=== PATIENT | female | born 1975 | race Caucasian/White ===

== ENCOUNTER 2016-05-19 08:40 | Day surgery (SDC) | payer BC ==
[~2016-05-19 08:40] MED LIST: DEXAMETHASONE SOD PHOS 4 MG/1 ML VIAL ONE; FENTANYL 100 MCG/2 ML VIAL ONE; KETOROLAC TROMETHAMINE 30 MG/ML 1 ML VIAL ONE; LIDOCAINE 2% (MULTI DOSE) 10 ML VIAL ONE; METOCLOPRAMIDE HCL 5 MG/ML 2ML VIAL ONE; MIDAZOLAM HCL 1 MG/ML 2ML VIAL ONE; ONDANSETRON 4 MG/2ML 2 ML VIAL ONE; PROPOFOL 40 ML IV ONE
--- NOTE | 2016-05-19 08:45 | HP ---
DATE OF CLINIC: 05/16/2016 ADENIKE COREA : 1975 PLANNED PROCEDURE: Right Knee Arthroscopic Loose Body Removal and Possible Chondroplasty DATE OF SURGERY: May 19, 2016 SURGEON: Delon Burton M.D. HISTORY OF PRESENT ILLNESS Adenike Corea is a 40 year old female. * Medication list reviewed with patient allergy list reviewed with patient. * Has not tried NSAIDS * Has not tried Physical Therapy * Has not tried Injections The patient is a 40-year-old female who has had a pain and clicking in her right knee and is here to discuss removal of a loose body in ehr right knee. An MRI was ordered by Silver she would like to review with the results of that. The patient is an established patient of mine who had a right ankle pilon fracture and Maisonneuve fracture of the proximal fibula. She states that her ankle feels fairly good. She has some stiffness but overall she thinks that she is doing well. Her bigger problem is her knee. She states that she has medial sided. Occasionally it clicks or catches on her. She had a loose body which I removed in the left knee and would like to know that potentially could do the same on this right side. She states that she has been trying to get in however the weather has made it difficult for her to get it she thinks that she is doing quite well from her left knee arthroscopic loose body removal. After discussion and review of treatment options for the right knee including non-operative and surgical, she has elected to proceed with surgery and presents today preoperatively. CURRENT MEDICATION * Levothyroxine Sodium 300 MCG Tablet 1 once a day, 30 days, 5 refills * ProAir HFA 108 (90 Base) MCG/ACT Aerosol, solution AERS, as directed 2 puff every 6 hrs as needed, 30 days, 0 refills PAST MEDICAL/SURGICAL HISTORY Reported: Recent change in medical history and no Surgery/Hospitalizations reported. LMP: 2007, Last pap smear date 07/14/2010 result: normal, Last mammogram date: 07/19/2010 result: normal, and DORY - 1 ovary was left. Medical: No history breast mass. Bladder disease multiple infections of kidney/bladder. No previous STD. A previous fracture, Reported numbness, Reported tingling, renal history multiple infections of kidney/bladder, Thyroid Disorder, and Hyperlipidemia. Surgical / Procedural: Arthroscopy Left knee arthroscopic removal of loose body 07/07/15 at [facility] with Dr. Delon Burton. : 5, para 4, and aborta 1. Diagnoses: Urinary tract infection with . No cervical dysplasia No vaginitis. Thyroid disorder Diabetes mellitus - pt states she is on glucophage - states her previous PCP told her she had "traces of DM". Osteoarthritis Procedural: * Negative breast cancer - Left Surgical: * Hysterectomy partial for endometriosis with conservation of left ovary 2007 Tubal - 06/2006 * Tubal ligation 2006 SOCIAL HISTORY * Care Engagement Accepted. Social history unchanged. Behavioral: Caffeine use 2 soda per day and current smoker 1/2 PPD for 20+ years. Not chewing tobacco. Previously smoked. Smoking status: Current everyday smoker. Alcohol: No consumption of alcohol and not using alcohol. Drug Use: Not using drugs. Habits: Good exercise habits. Home Environment: Does not live alone. Lives with spouse and kids. 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 * SBIRT Screening Performed Left shoulder pain for close to a year. Pain started after playing basketball with her children. She reports good relief with steroid shots times two but pain has returned. ALLERGIES * Lortab * Reglan Reaction: Skin Rashes/Hives FAMILY HISTORY Family medical history Mother - OA, RA Father - HTN REVIEW OF SYSTEMS Systemic: No fever and no recent weight change. Cardiovascular: No chest pain or discomfort and no palpitations. Pulmonary: No cough and no wheezing. Gastrointestinal: No nausea, no vomiting, no abdominal pain, and no diarrhea. Hematologic: No easy bleeding (no blood clots). Neurological: No motor disturbances and no sensory disturbances. Skin: No skin lesions and no rash. PHYSICAL FINDINGS * Vitals taken 05/16/2016 10:40 am BP-Sitting R 115/75 mmHg 100 - 120/56 - 80 BP Cuff Size Regular Pulse Rate-Sitting 78 bpm 50 - 100 Pulse Rhythm Regular Temp-Oral 98 F 96 - 101 Height 69 in 60 - 69 Weight 272 lbs 98 - 183 Body Mass Index 40.2 kg/m2 Body Surface Area 2.35 m2 Pain Level 2 General Appearance: * Well developed. * In no acute distress. Eyes: General/bilateral: Extraocular Movements: * Normal. Lungs: * Clear to auscultation. * No wheezing was heard. * No rales/crackles were heard. Cardiovascular: Heart Rate and Rhythm: * Heart rate was normal. * Heart rhythm regular. Abdomen: Palpation: * Abdominal non-tender. Neurological: * Oriented to time, place, and person. Motor: * Dominant Hand = Right Hand. The patient can walk up and down the hallway without any noticeable limp. She can circumduct her ankle and has good range of motion on the side. PHYSICAL FINDINGS RIGHT EXTREMITY Knee General Appearance: mild knee effusion. I cannot re-produce locking from the loose body today. The patient cannot fully extend her right knee. Right knee stable to varus and valgus stress (LCL and MCL) Neurologic: Gross sensation to light touch was present in the distribution of DP/SP nerves Vascular: capillary refill less then 2 seconds is present Motor: 5 out of 5 strength quad, EHL, TA, GA, peroneals Range of Motion AROM: 10-120 degrees PROM: 5-125 degrees Focused Exam Findings: Patella Pateller tilt: lateral Patella PAIN to touch, medial border and medial patellar retinaculum Knee Joint Medial joint line: tender to touch Lateral joint line: non tender Lennie exam: normal Anterior drawer: normal Posterior drawer: normal PHYSICAL FINDINGS LEFT EXTREMITY Knee General Appearance: no signs of contusion, well-healed arthroscopic scars, swelling or edema. The patient has no locking to be appreciated Neurologic: Gross sensation to light touch was present in the distribution of DP/SP nerves Vascular: capillary refill less then 2 seconds is present Motor: 5 out of 5 strength quad, EHL, TA, GA, peroneals Range of Motion AROM: 0 to 120 degrees PROM: 0 to 125 degrees Focused Exam Findings: Patella Pateller tilt: neutral Patella mildly tender to touch No audible crepitus Knee Joint Medial joint line: non tender Lateral joint line: mildly tender to touch Lennie exam: normal Anterior drawer: normal Jj maneuver: no snapping, pain negative Stable to varus and valgus stress at 0 and 30 degrees IMAGING 2.--CXR: No acute cardiopulmonary problems are appreciated I examined the patient's right knee x-ray from February 02, 2016. On these x-rays the patient has a loose body bilaterally. On the left side is posterior to her PCL. On the right knee which is the more bothersome in the medial gutter. On the Grandy view there is a calcified piece of the medial border of that undersurface of the patella. MRI from February 22, 2016 demonstrates some medial sided chondral loss. The patient has edema on the undersurface of the patella. There is a loose body in the medial gutter as seen on this on the axial images of the MRI. It is calcified. On sagittal views I do not appreciate any abnormalities of the medial or lateral meniscus. The patient does have chondral wear in the medial compartment. I agree with the radiology report that the chondral body is about 14 x 9 mm with a contusion of the medial femoral condyle and reactive bone signal in the subchondral portion of the medial femoral condyle. Clinically, I did not appreciate the patient having any tear of the MCL. However the MRI is a couple of months old. ASSESSMENT Delon Burton MD made the following assessments * Patellar chondromalacia -right knee Loose body History of ground-level fall with knee-twisting injury, internal derangement, intraarticular loose body, medial patellar retinaculum tear, medial collateral ligament grade 2 sprain versus partial-thickness tear in a 40-year-old woman with early osteoarthritis in the medial compartment of the right knee History of right ankle pilon fracture and Maisonneuve injury sustained in the same ground-level fall PLAN * OTHER Keflex 500 MG CAPS, as directed: one tab by mouth every 8 hours until completed after surgery, 2 days, 0 refills Aspirin 325 MG TABS, as directed: one tab by mouth every day for 30 days after surgery, 30 days, 0 refills OxyCODONE HCl 5 MG TABS, as directed: one to two tabs by mouth every 6 hours as needed for pain after surgery, 7 days, 0 refills Delon Burton MD ordered the following therapy * Arthroscopy of the knee with removal of loose body and possible chondroplasty -Right THERAPY * Patient not eligible for fall risk assessment. SURGICAL CONSENT We have discussed surgical options including right knee arthroscopic loose body removal, possible chondroplasty and non-operative management. We spoke about common risks including infection, persistent draining sinus, injury to surrounding nerves and blood vessels, anesthesia risks, as well as other possible problems. The patient then signed the consent form and we discussed the post-op rehab plan. The patient was counseled in detail regarding the diagnosis, treatment options available, prognosis of each treatment option and the potential risks and complications. The risks of surgery include, but are not limited to, anesthetic , neurovascular complications, pulmonary embolism, deep vein thrombosis, wound dehiscence, failure of any or all of the discussed procedures, infection of the joint or surrounding soft tissue, need for revision surgery, chronic pain, limitations in activities of daily living, inability to return to work, and loss of normal range of motion or functional use of the extremity. There is the possibility of failure over time that may require additional operative or non-operative treatment. The patient acknowledged that there are a number of perioperative risks not mentioned here and would still like to proceed. The patient is aware of and understands these risks, and wishes to proceed with the proposed surgical procedure and other procedures as indicated at the time of surgery. The preoperative instructions were reviewed with the patient and all questions were answered. CARE TEAM [facility] Clint Kunz, SUPERVISOR [employer]DS [employer]ANGE-[employer] [facility] BLP/sg
[2016-05-19] MEDS ORDERED: IV START KIT ONE (08:49)
[2016-05-19] MEDS ORDERED: LACTATED RINGERS 1,000 ML ONE ×2 (08:49→11:33)
[2016-05-19] MEDS ORDERED: CEFAZOLIN SODIUM 2 GRAM PREMIX 100 ML IV ONE (08:49)
[2016-05-19] MEDS ORDERED: CEFAZOLIN SODIUM 2 GRAM PREMIX 100 ML IV PRN (09:00)
[2016-05-19] MEDS ORDERED: BUPIVACAINE 0.25% (PRES FREE) 30 ML VIAL ONE (09:51)
[2016-05-19] MEDS ORDERED: MIDAZOLAM HCL 1 MG/ML 2ML VIAL ONE (09:54)
[2016-05-19] MEDS ORDERED: PROPOFOL 20 ML IV ONE (10:13)
[2016-05-19] MEDS ORDERED: NALOXONE HCL 0.4 MG/ML VIAL IV PRN (10:23)
[2016-05-19] MEDS ORDERED: FENTANYL 100 MCG/2 ML VIAL IV PRN (10:23)
[2016-05-19] MEDS ORDERED: MORPHINE SULFATE 4 MG/ML SYRINGE IV PRN ×2 (10:23→12:07)
[2016-05-19] MEDS ORDERED: ONDANSETRON 4 MG/2ML 2 ML VIAL IV PRN ×2 (10:23→11:41)
[2016-05-19] MEDS ORDERED: PROMETHAZINE HCL 25 MG/ML VIAL IM PRN (10:23)
[2016-05-19] MEDS ORDERED: ATROPINE SULFATE 0.4 MG/1 ML VIAL IV PRN (10:23)
[2016-05-19] MEDS ORDERED: LACTATED RINGERS 1,000 ML IV SCH ×2 (10:30→11:41)
--- NOTE | 2016-05-19 11:13 | PCMBPN ---
Brief Post Op Note: Date of Procedure: 05/19/16 Preoperative Diagnosis: 1. right knee patella chondromalacia and right knee medial loose body Postoperative Diagnosis: 1. [Same] Procedure: right knee arthroscopic loose body removal and chondroplasty Surgeon: Delon Burton MD Assist: Jerome RICHMOND Anesthesia: GETA, 30mL 0.25% marcaine without epi injected to the portal sites Findings: pt had grade 3 medial facet patella chondromalacia and a synovialized loose body in the medial gutter which was removed. Normal medial and lateral meniscus and cartilage in the knee Condition: extubated, stable vitals, transferred to pacu Complications: None IV Fluids: 800 mLs of LR Urine Output: 0 mLs Estimated Blood Loss: 19 mLs Tourniquet Time: [N/A] Specimens: [N/A] Implants: None Drains: [N/A] PLAN: WBAT on the RLE. Oxycodone for pain control and ASA for DVT prophylaxis. Keflex for 24 hours post-op
[2016-05-19] MEDS ORDERED: DIPHENHYDRAMINE HCL 50 MG/1 ML VIAL IV PRN (11:41)
[2016-05-19] MEDS ORDERED: ACETAMINOPHEN 325 MG TABLET PO PRN (11:41)
[2016-05-19] MEDS ORDERED: MORPHINE SULFATE 2 MG/ML SYRINGE IV PRN (11:41)
[2016-05-19] MEDS ORDERED: OXYCODONE HCL 5 MG TABLET PO PRN (11:41)
[2016-05-19] MEDS ORDERED: OXYCODONE HCL 5 MG TABLET ONE (12:15)
--- NOTE | 2016-05-20 09:35 | OP ---
Adenike BARROS : 1975 [id number] DATE OF PROCEDURE: May 19, 2016 PREOPERATIVE DIAGNOSES: Right knee patella chondromalacia and right knee medial loose body. POSTOPERATIVE DIAGNOSES: Right knee patella chondromalacia and right knee medial loose body. PROCEDURE: RIGHT KNEE ARTHROSCOPIC LOOSE BODY REMOVAL AND CHONDROPLASTY OF THE PATELLA CHONDROMALACIA. SURGEON: Delon Burton M.D. ADMINISTRATIVE RESOURCES ASSOCIATE: Ra Gallardo ANESTHESIA: General along with 30 mL of 0.25% Marcaine without epinephrine injected into the portal sites. FINDINGS: The patient had grade 3 chondromalacia of the patella's medial facet and synovialized loose body in the medial gutter which was removed. The patient had normal medial and lateral meniscus and the cartilage in the medial and lateral compartments. CONDITION: The patient was extubated with stable vital signs and transferred to the PACU. COMPLICATIONS: None. INTRAVENOUS FLUIDS: 800 mL of Lactated Ringer's. URINE OUTPUT: 0 mL ESTIMATED BLOOD LOSS: 15 mL SPECIMENS: N/A TOURNIQUET TIME: N/A IMPLANTS: None. DRAINS: N/A PLAN: The patient will be weight-bearing as tolerated on the right lower extremity. Oxycodone for pain control, aspirin for DVT prophylaxis and Keflex for 24 hours postoperatively. INDICATIONS: The patient is a 40-year-old female with right knee pain that had not improved with nonoperative treatment. Prior to the surgery we had talked about the risks as well as benefits of surgery and my recommendation would be to assess her knee, potentially remove the loose body, and addressed any cartilaginous abnormalities with a chondroplasty. I told her that unless there is locking and catching. I would not recommend surgery. The patient and I spoke about the risks as well as benefits of surgery and she elected to proceed. PROCEDURE DESCRIPTION: The patient was seen in the preoperative area where we confirmed the right side was the correct side. They agreed that the right side was the correct side and that our proposed procedure was a right knee arthroscopy. The patient's right knee was marked with my initials and the word "yes". I signed and confirmed that the H&P was correct and updated. At this point in time with the patient's leg signed, the patient was brought from the preoperative area to the operating theater where she was placed on the OR table. A safety belt was placed and the patient was placed asleep without incident. The patient's left lower extremity was then placed in a knee molina and a tourniquet was placed, although it was not elevated for the procedure. The knee was then prepped and draped in sterile fashion first with a Chlorhexadine scrub and prep. Once the knee was prepped, the lateral peripatellar tendon incision was marked with a marking pen as well as the superolateral outflow portal. I then performed a final time out confirming that the right side was the correct side, that Ancef 2 g had been given approximately 20 minutes prior to entering the room. The patient had SCD's on their right lower extremity for intraoperative DVT prophylaxis and xrays and MRI were up on the exam board. After everyone in the room confirmed that the right side was the correct side, 20 mL of 0.25% Marcaine without epinephrine was injected by our portal sites for postop pain relief. A #11 blade was now used with the knee flexed in 30 degrees of flexion to allow entry of my scope into the notch. With this in place I extended the knee placing the scope into the patellofemoral joint. I then used the #11 blade to make my lateral superior outflow portal. I then performed a diagnostic knee arthroscopy. My diagnostic knee arthroscopy demonstrated in the patellofemoral joint an abnormal appearing on the undersurface of the patella. The patient had evidence of grade 2 and grade 3 chondromalacia changes more in the medial facet of the patella. I examined the medial and lateral compartments. In the medial gutter there was a loose body, this was in the medial gutter and was somewhat covered by synovium. I looked in the medial compartment. I did not appreciate any signs of any meniscal tear or any cartilaginous problems. The ACL and PCL all looked normal. The lateral compartment and the lateral meniscus appeared normal as did the cartilaginous surfaces. I looked by the popliteus in the lateral gutters and no other signs of loose bodies. I then proceeded to make a medial peripatellar portal and placed a shaver. I freed up the loose bodies and removed those through this portal. Next, I turned my attention to examining the meniscus. I used my arthroscopic probe to examine these structures. They all appeared to be normal. I then looked at the undersurface of the patella. There was a loose flap. I used the biter to remove this. After this was completed I confirmed good hemostasis and was ready to close. The incision was now closed with 4-0 nylon simple sutures. Next, 20mL of 0.25% marcaine without epinephrine was injected at the portal sites. The patient's knee was checked for having good hemostasis and all needles counts were correct at the end of the case. The knee was covered with a DSD, HUGO wrap and a cryo-cuff. The patient was awoken without difficulty and taken to the recovery room. The patient will be weight-bearing as tolerated on the right lower extremity. I encouraged her to work on range of motion of this side. She will take oxycodone for pain control, Keflex for perioperative antibiotics and aspirin for DVT prophylaxis. Job [id number] CC: [facility]
== END 2016-05-19 13:30 | disposition home or self-care (01) ==
LOC: SDC 08:40
PROVIDERS: ATTEND Orthopaedic Surgery
DX: M22.41 Chondromalacia patellae, right knee (principal); M23.41 Loose body in knee, right knee; K21.9 Gastro-esophageal reflux disease without esophagitis; E03.9 Hypothyroidism, unspecified; F17.200 Nicotine dependence, unspecified, uncomplicated
CPT/HCPCS: 29874; J3010; J1100; A9270; J1885; J2250 ×2; J2405; J7120 ×2; J2001; J0690

== ENCOUNTER 2016-08-05 13:12 | Emergency (ER) | payer BC ==
--- NOTE | 2016-08-05 14:31 | US ---
DUPLX SCAN VEIN EXT UNI RT History: Right knee surgery 2 months ago with pain, swelling and redness. Findings: Ultrasonography of the right lower extremity was performed, with grayscale color and Doppler technique utilizing evaluation of the lower extremity. There is adequate compressibility of the deep venous system without current findings of deep venous thrombosis. Normal responses are seen to augmentation and Valsalva maneuvers. Normal respiratory variation is observed as well. Impression: 1. A right lower extremity ultrasound which currently appears negative, with no current findings of deep venous thrombosis observed.
== END 2016-08-05 15:17 | disposition home or self-care (01) ==
LOC: ED 13:12
DX: M79.604 Pain in right leg (principal); E03.9 Hypothyroidism, unspecified; F17.210 Nicotine dependence, cigarettes, uncomplicated